=== PATIENT | female | born 1965 | race Hispanic/Latino ===

== ENCOUNTER 2017-06-29 17:38 | Emergency (ER) | payer SELFPAY ==
--- NOTE | 2017-06-29 21:24 | Emergency Department Report ---
ED Headache HPI - General Chief Complaint: Headache Stated Complaint: SHARP PAIN IN SHOULDER /NECK /BACK OF HEAD Time Seen by Provider: 06/29/17 21:22 - History of Present Illness Initial Comments: 52-year-old female past medical history intermittent headaches, possible hypothyroidism as per patient presents with complaint of sudden onset right sided neck pain radiating to the back of her head since afternoon. Patient states it has been ongoing for approximately 5 hours intermittent and very uncomfortable. On exam patient is awake alert and oriented 3 does not appear to be in acute distress is fully lucid cooperative and conversant. States that it is an aching sharp sensation which radiates to the back part of her right side had near occipital region and the back of her neck. Patient denies fevers chills nausea vomiting blurry vision. States it is intermittent and throbbing. Denies any head trauma. Patient is visibly ambulatory. States she has not taken any medicine for the headache today. States she does not currently have primary care doctor. Patient states she is suspicious she may have undiagnosed thyroid issues. Denies any photo or phonophobia Timing/Duration: waxing and waning, other (5 days) Quality: moderate Head Injury Location: occipital Allergies/Adverse Reactions: Allergies aspirin Allergy (Verified 06/29/17 17:52) Rash ED Review of Systems ROS: Stated complaint: SHARP PAIN IN SHOULDER /NECK /BACK OF HEAD Other details as noted in HPI Constitutional: denies: chills, fever Eyes: denies: eye pain, eye discharge, vision change ENT: denies: ear pain, throat pain Respiratory: denies: cough, shortness of breath, wheezing Cardiovascular: denies: chest pain, palpitations Endocrine: no symptoms reported Gastrointestinal: denies: abdominal pain, nausea, diarrhea Genitourinary: denies: urgency, dysuria, discharge Musculoskeletal: as per HPI. denies: back pain, joint swelling, arthralgia Skin: denies: rash, lesions Neurological: denies: headache, weakness, paresthesias Psychiatric: denies: anxiety, depression Hematological/Lymphatic: denies: easy bleeding, easy bruising ED Past Medical Hx - Past Medical History Previous Medical History?: No - Surgical History Past Surgical History?: No - Social History Smoking Status: Never Smoker Substance Use Type: None ED Physical Exam - General Limitations: No Limitations General appearance: alert, in no apparent distress - Head Head exam: Present: atraumatic, normocephalic - Eye Eye exam: Present: normal appearance, PERRL, EOMI Pupils: Present: unequal (patient has slightly enlarged pupil and left) - ENT ENT exam: Present: mucous membranes moist - Neck Neck exam: Present: normal inspection, full ROM - Respiratory Respiratory exam: Present: normal lung sounds bilaterally. Absent: respiratory distress - Cardiovascular Cardiovascular Exam: Present: regular rate, normal rhythm. Absent: systolic murmur, diastolic murmur, rubs, gallop - GI/Abdominal GI/Abdominal exam: Present: soft, normal bowel sounds - External exam: Present: normal external exam Speculum exam: Present: normal speculum exam Bi-manual exam: Present: normal bi-manual exam - Extremities Exam Extremities exam: Present: normal inspection - Back Exam Back exam: Present: normal inspection - Neurological Exam Neurological exam: Present: alert, oriented X3 - Expanded Neurological Exam Expanded Patient oriented to: Present: person, place, time Cranial nerves: EOM's Intact: Normal, Facial Sensation: Normal Cerebellar function: Finger to Nose: Normal, Heel to [place]: Normal, [place]: Normal Sensory exam: Upper Extremity Light Touch: Normal, Lower Extremity Light Touch: Normal Motor strength exam: RUE: 5, LUE: 5, RLE: 5, LLE: 5 Best Eye Response ([place]): (4) open spontaneously Best Motor Response ([place]): (6) obeys commands Best Verbal Response ([place]): (5) oriented [place] Total: 15 - Psychiatric Psychiatric exam: Present: normal affect, normal mood - Skin Skin exam: Present: warm, dry, intact, normal color. Absent: rash ED Course Vital Signs 06/29/17 17:53 Temperature 98.4 F Pulse Rate 70 Respiratory 16 Rate O2 Sat by Pulse 100 Oximetry ED Medical Decision Making - Lab Data Result diagrams: 06/29/17 21:54 06/29/17 21:54 - Medical Decision Making A/P: Headache, shoulder pain 1-based on patient's complaint of sudden onset unilateral headache and statement that she has occasionally unequal pupils in the context of her current headache/neck ache/right upper shoulder pain I discussed with patient that it is important to obtain a head CT noncontrast and with contrast to assess for any abnormal lesions in the brain or surrounding vasculature (such as a vertebral basilar dissection and/or any brain ischemia). Patient was adamant that she does not want a head CT for personal reasons. Patient is adamant she does not want imaging at this time even though I explained to her that it is important to do so and that I spoke to my supervising doctor Dr. Mcghee who recommended the same thing. I one patient she is at risk for undiagnosed or unrecognized lesion to brain and/or vasculature which could result in or permanent disability. Patient stated she understood this but did not wish to proceed with imaging. I informed patient she would have to sign out AGAINST MEDICAL ADVICE. Patient stated she understood the risks and will sign out AGAINST MEDICAL ADVICE and follow-up with a primary care doctor. Conversation witnessed by bedside nurse and patient's son was at bedside. Patient was ambulatory and fully lucid awake alert and oriented 3 during this interaction. 3-I informed patient that she has evidence of subclinical hypothyroidism and needs to follow up with primary care doctor, patient stated she understood this 4-case discussed with Dr. Mcghee 5- patient asked what she could take for her headache I advised her to take over -the-counter Tylenol when necessary as she has NSAID allergy Critical care attestation.: If time is entered above; I have spent that time in minutes in the direct care of this critically ill patient, excluding procedure time. ED Disposition Clinical Impression: Left against medical advice Right shoulder pain Qualifiers: Chronicity: acute Qualified Code(s): M25.511 - Pain in right shoulder Headache Qualifiers: Headache type: tension-type Headache chronicity pattern: acute headache Intractability: not intractable Qualified Code(s): G44.209 - Tension-type headache, unspecified, not intractable Disposition: DC-07 LEFT AGAINST MED ADVICE Is pt being admited?: No Does the pt Need Aspirin: No Condition: Stable Instructions: Acute Headache (ED), Hypothyroidism (ED), Against Medical Advice (ED) Referrals: [facility] [Provider Group] - 3-5 Days [facility] [Outside] - 3-5 Days DRAKE OROZCO MD [Staff Physician] - 3-5 Days Forms: AMA Form, Accompanied Note, Work/School Release Form(ED) Time of Disposition: 23:10
[2017-06-29 22:14] LABS: Eosinophils % (Auto) 2.7 % (0.0-4.3); Hematocrit 46.9 % (30.3-42.9); Hemoglobin 15.3 gm/dl (10.1-14.3); Mean Corpuscular HGB Conc 33 % (30-34); Mean Corpuscular Hemoglobin 29 pg (28-32); Mean Corpuscular Volume 89 fl (79-97); Platelet Count 342 K/mm3 (140-440); Red Blood Count 5.29 M/mm3 (3.65-5.03); Red Cell Distribution Width 13.7 % (13.2-15.2); White Blood Count 7.7 K/mm3 (4.5-11.0)
[2017-06-29 22:27] LABS: BUN/Creatinine Ratio 14.28; Blood Urea Nitrogen 10 mg/dL (7-17); Calcium 10.1 mg/dL (8.4-10.2); Carbon Dioxide 26 mmol/L (22-30); Glucose 97 mg/dL (65-100)
[2017-06-29 22:28] LABS: Anion Gap 18 mmol/L; Chloride 98.2 mmol/L (98-107); Potassium 4.3 mmol/L (3.6-5.0); Sodium 138 mmol/L (137-145)
[2017-06-29 23:05] LABS: Creatine Kinase MB 1.2 ng/mL (0.0-4.0)
[2017-06-29 23:26] VITALS: BP 132/83
== END 2017-06-29 23:26 | disposition left against medical advice (07) ==
LOC: EDSEX → ED 17:38
DX: M25.511 Pain in right shoulder (principal); G44.209 Tension-type headache, unspecified, not intractable
CPT/HCPCS: 36415; 80048; 82550; 82553; 84439; 84443; 84484; 85025; 93005; 93010